=== PATIENT | male | born 1960 | race Caucasian/White ===

== ENCOUNTER 2018-04-23 16:52 | Emergency (ER) | payer OTHER ==
[~2018-04-23] VITALS: Ht 182.9 cm; Wt 80.9 kg
[2018-04-23 17:06] VITALS: BP 116/70
== END 2018-04-23 18:01 | disposition home or self-care (01) ==
LOC: ER 16:53
DX: S52.591A Other fractures of lower end of right radius, initial encounter for closed fracture (principal); Z88.5 Allergy status to narcotic agent; W19.XXXA Unspecified fall, initial encounter; Y93.89 Activity, other specified; Y92.89 Other specified places as the place of occurrence of the external cause; Y99.8 Other external cause status
CPT/HCPCS: 29125; 73110; 99284

== ENCOUNTER 2021-04-25 19:29 | Emergency (ER) | payer OTHER ==
[~2021-04-25] VITALS: Ht 182.9 cm; Wt 86.3 kg
[2021-04-25] MEDS ORDERED: propofol 10mg/ml 20ml vial IV ONE (20:45)
[2021-04-25] MEDS ORDERED: ACET-1059 PO (21:43)
[2021-04-25 23:49] VITALS: BP 138/90
== END 2021-04-25 23:51 | disposition home or self-care (01) ==
LOC: ER 19:30
DX: S52.572A Other intraarticular fracture of lower end of left radius, initial encounter for closed fracture (principal); M25.532 Pain in left wrist; Z88.8 Allergy status to other drugs, medicaments and biological substances; Z79.899 Other long term (current) drug therapy; V00.128A Other non-in-line roller-skating accident, initial encounter; Y93.89 Activity, other specified; Y92.89 Other specified places as the place of occurrence of the external cause; Y99.8 Other external cause status
CPT/HCPCS: 25605; 73110; 94799; 99152; 99285; J2704; 94760